=== PATIENT | female | born 1950 | race Caucasian/White ===

== ENCOUNTER 2022-04-06 12:36 | Observation (INO) ==
[2022-04-06 18:55] LABS: ABS Basophils 0.1 10^3/ul (0-0.2); ABS Eosinophils 0.1 10^3/ul (0-0.6); ABS Lymphocytes 2.1 10^3/ul (1.0-4.8); ABS Monocytes 0.6 10^3/ul (0-0.8); ABS Neutrophils 8.9 10^3/ul (1.5-7.7); Eosinophil % 0.5 %; Hematocrit 41 % (35-47); Hemoglobin 13.5 g/dL (12.0-16.0); Mean Corpuscular HGB Conc 33 g/dL (31-36); Mean Corpuscular Hemoglobin 30 pg (27-31); Mean Corpuscular Volume 93 fL (80-97); Mean Platelet Volume 8.1 fL (7.4-10.4); Platelet Count 227 10^3/uL (150-450); Red Blood Count 4.45 10^6 /uL (3.70-4.87); Red Cell Distribution Width 14 % (10-15); White Blood Count 11.7 10^3/uL (3.5-10.8)
[2022-04-06 19:41] LABS: Calcium 9.6 mg/dL (8.6-10.3); Potassium 4.5 mmol/L (3.5-5.0); eGFR CKD-EPI 80.9 (>60)
[2022-04-06] MEDS ORDERED: Heparin 5000 UNITS/ML 1 mL VIAL SUBCUT SCH (22:00)
[2022-04-07] MEDS ORDERED: Acetaminophen IV 1 GM/100ML 1,000 MG/100 ML BAG IV PRN (07:22)
[2022-04-07] MEDS ORDERED: Morphine 2 MG/ML SYRINGE IV PRN (07:22)
[2022-04-07] MEDS ORDERED: Enoxaparin 40 MG/0.4 ML SYR SUBCUT ONE (10:00)
[2022-04-07 12:00] VITALS: BP 134/86
== END 2022-04-07 12:00 | disposition home or self-care (01) ==
LOC: ED 12:36 → INTOOBSV 15:29 → EDHOLD 15:29
PROVIDERS: ADMIT Internal Medicine; ATTEND Internal Medicine